=== PATIENT | female | born 1960 | race Hispanic/Latino ===

== ENCOUNTER 2018-01-24 22:42 | Emergency (ER) | payer MEDICAID ==
[2018-01-24] MEDS ORDERED: NACL 0.9% 1000 ML 1,000 ML IV ONE (22:52)
--- NOTE | 2018-01-24 22:57 | Emergency Department Report ---
ED Dizziness HPI - General Stated Complaint: HIP PAIN Time Seen by Provider: 01/24/18 22:48 Source: patient, EMS Mode of arrival: Stretcher Limitations: No Limitations - History of Present Illness Initial Comments: Patient is 57 years old female with history of hypertension and depression. Patient brought from the [facility] for evaluation of one episode of dizziness and lightheadedness. Patient stated that she was sitting getting a snack when she started having the dizziness. Patient stated that she had this symptoms before when she take Seroquel. Patient denied any chest pain , shortness of breath, numbness or tingling sensation. She also denied any bowel or bladder incontinence. Patient stated that her symptoms completely resolved now. MD Complaint: dizziness, lightheadedness, near syncope -: Sudden Timing: sudden onset Description: sense of movement, lightheadedness, near-syncope History of Same: Yes History of Trauma: No Severity: moderate Improves With: remaining still, rehydration Associated Symptoms: denies other symptoms, weakness. denies: ataxia, chest pain, confusion, cough, diaphoresis, fever/chills, loss of appetite, malaise, rash, seizure, shortness of breath, syncope - Related Data Allergies Allergy/AdvReac Type Severity Reaction Status Date / Time No Known Allergies Allergy Unverified 01/24/18 23:00 ED Review of Systems ROS: Stated complaint: HIP PAIN Other details as noted in HPI Comment: All other systems reviewed and negative Constitutional: denies: chills, fever Respiratory: denies: cough, orthopnea, shortness of breath, SOB with exertion, SOB at rest Cardiovascular: denies: chest pain, palpitations, dyspnea on exertion, orthopnea Gastrointestinal: denies: abdominal pain, nausea, vomiting, diarrhea, constipation, hematemesis, melena, hematochezia Genitourinary: denies: urgency, dysuria, frequency, hematuria, discharge, abnormal menses, dyspareunia Neurological: weakness (generalize and results now,), vertigo. denies: headache , numbness, paresthesias, confusion, abnormal gait ED Physical Exam - General General appearance: alert, in no apparent distress - Head Head exam: Present: atraumatic, normocephalic, normal inspection - Eye Eye exam: Present: normal appearance, PERRL - ENT ENT exam: Present: normal exam, normal orophraynx, mucous membranes moist - Neck Neck exam: Present: normal inspection, full ROM. Absent: tenderness, meningismus, lymphadenopathy, thyromegaly - Respiratory Respiratory exam: Present: normal lung sounds bilaterally. Absent: respiratory distress, wheezes, rales, rhonchi, stridor, chest wall tenderness, accessory muscle use, decreased breath sounds, prolonged expiratory - Cardiovascular Cardiovascular Exam: Present: regular rate, normal rhythm, normal heart sounds - GI/Abdominal GI/Abdominal exam: Present: soft, normal bowel sounds. Absent: distended, tenderness, guarding, rebound, rigid, organomegaly, mass, bruit, pulsatile mass , hernia - Extremities Exam Extremities exam: Present: normal inspection, full ROM, normal capillary refill - Back Exam Back exam: Present: normal inspection, full ROM. Absent: tenderness, CVA tenderness (R), CVA tenderness (L), muscle spasm, paraspinal tenderness, vertebral tenderness, rash noted - Neurological Exam Neurological exam: Present: alert, oriented X3, CN II-XII intact, normal gait - Psychiatric Psychiatric exam: Present: normal affect, normal mood - Skin Skin exam: Present: warm, intact, normal color ED Course Vital Signs 01/24/18 01/24/18 22:53 23:01 Temperature 98 F Pulse Rate 62 Respiratory 16 18 Rate Blood Pressure 136/76 [Left] O2 Sat by Pulse 100 18 L Oximetry - Reevaluation(s) Reevaluation #1: 01/25/18 01:32 Patient remained asymptomatic in the ER. Blood pressure maintained as more than 130/80. Patient will be discharged back to [place] and follow-up with primary care physician as needed ED Medical Decision Making - Lab Data Result diagrams: 01/24/18 23:09 01/24/18 23:09 Critical care attestation.: If time is entered above; I have spent that time in minutes in the direct care of this critically ill patient, excluding procedure time. ED Disposition Clinical Impression: Dizziness Disposition: DC-01 TO HOME OR SELFCARE Is pt being admited?: No Condition: Stable Instructions: Dizziness (ED)
[2018-01-24 23:34] LABS: Basophils # (Auto) 0.1 K/mm3 (0.0-0.1); Eosinophils # (Auto) 0.1 K/mm3 (0.0-0.4); Eosinophils % (Auto) 1.9 % (0.0-4.3); Hematocrit 32.5 % (30.3-42.9); Hemoglobin 10.6 gm/dl (10.1-14.3); Lymphocytes # (Auto) 3.3 K/mm3 (1.2-5.4); Mean Corpuscular HGB Conc 33 % (30-34); Mean Corpuscular Hemoglobin 30 pg (28-32); Mean Corpuscular Volume 92 fl (79-97); Monocytes # (Auto) 0.7 K/mm3 (0.0-0.8); Monocytes % (Auto) 9.3 % (0.0-7.3); Platelet Count 354 K/mm3 (140-440); Red Blood Count 3.54 M/mm3 (3.65-5.03)
[2018-01-24 23:54] LABS: Alanine Aminotransferase 12 units/L (7-56); Albumin 3.6 g/dL (3.9-5); BUN/Creatinine Ratio 15; Blood Urea Nitrogen 12 mg/dL (7-17); Calcium 8.2 mg/dL (8.4-10.2); Hemolysis Index 11
[2018-01-25 01:59] VITALS: BP 118/70
== END 2018-01-25 04:33 | disposition home or self-care (01) ==
LOC: ED 22:42
DX: R42 Dizziness and giddiness (principal); R53.1 Weakness
CPT/HCPCS: 36415; 80053; 84484; 85025; 85379; 93005; 93010; 96360; 99284; J7030